=== PATIENT | female | born 1985 | race Caucasian/White ===

== ENCOUNTER 2019-09-04 11:45 | Outpatient (CLI) | payer OTHER, SELFPAY ==
--- NOTE | ~2019-09-04 | XR_ITS ---
XR knee RT 3V 09/04/2019 12:12 Indication: Right knee pain Procedure: 3 views right knee Comparison: No prior studies for comparison. Findings: No fracture or traumatic malalignment. No significant joint effusion. No fracture or trauma tic malalignment. No foreign bodies. Impression: 1: No significant bone or joint abnormality. Reviewed, dictated and finalized at location A. Impression: 1: No significant bone or joint abnormality.
== END 2019-09-04 11:46 | disposition home or self-care (01) ==
PROVIDERS: PCP Internal Medicine; Visit Provider Internal Medicine
DX: M25.561 Pain in right knee (principal); M25.461 Effusion, right knee
CPT/HCPCS: 73562

== ENCOUNTER 2020-03-26 16:37 | Outpatient (CLI) | payer OTHER, SELFPAY ==
[2020-03-26 17:07] LABS: Basophils Absolute Auto 0.02 K/mm3 (0.00-0.10); Basophils Percent Auto 0.2 % (0.0-1.0); Eosinophils Absolute Auto 0.11 K/mm3 (0.02-0.50); Eosinophils Percent Auto 1.2 % (1.0-6.0); Hematocrit 40.2 % (35.0-49.0); Hemoglobin 13.6 g/dL (12.0-15.0); Immature Granulocyte Absolute 0.03 K/mm3 (0.00-0.00); Immature Granulocyte Percent A 0.3 % (0.0-0.0); Lymphocytes Percent Auto 21.9 % (18.0-42.0); Mean Corpuscular HGB Conc 33.8 g/dL (32.0-36.0); Mean Corpuscular Hemoglobin 31.2 pg (27.0-31.0); Mean Corpuscular Volume 92.2 fL (78.0-102.0); Mean Platelet Volume 10.4 fl (9.2-11.8); Monocytes Absolute Auto 0.46 K/mm3 (0.10-0.90); Neutrophils Absolute Auto 6.5 K/mm3 (1.7-7.2); Neutrophils Percent Auto 71.4 % (50.0-70.0); Platelet Count Result 200 K/mm3 (150-420); Red Blood Count 4.36 M/mm3 (4.20-5.40); Red Cell Distribution Width 12.3 % (11.6-14.4); White Blood Count 9.1 K/mm3 (4.8-10.8)
[2020-03-26 17:24] LABS: Alanine Aminotransferase 28 U/L (14-59); Alkaline Phosphatase 80 U/L (46-116); Amylase 36 U/L (25-115); Anion Gap 6 mmol/L (8-16); Aspartate Amino Transferase 15 U/L (15-37); Bilirubin,Total 0.3 mg/dL (0.00-1.00); Blood Urea Nitrogen 13 mg/dL (7-18); Calcium 8.9 mg/dL (8.5-10.1); Carbon Dioxide 30 mmol/L (21-32); Chloride 102 mmol/L (98-108); Estimated Glomerular Filt Rate > 60; Glucose 97 mg/dL (70-99); Lipase 141 U/L (73-393); Osmolality Calculated 286 mOsm/kg (285-295); Potassium 3.7 mmol/L (3.5-5.1); Sodium 138 mmol/L (136-145); Total Protein 7.8 g/dL (6.4-8.2)
[2020-03-26 17:26] LABS: SARS-CoV-2 Ag Negative (Negative)
[2020-03-26 17:30] LABS: Hemoglobin A1C 5.2 % (<5.7)
[2020-03-29 18:26] LABS: SARS-CoV-2 RNA PCR Negative
== END 2020-03-26 16:38 | disposition home or self-care (01) ==
LOC: CHSLAB 16:40
PROVIDERS: PCP Internal Medicine; Visit Provider Nurse Practitioner Family
DX: R51.9 Headache, unspecified (principal); R11.2 Nausea with vomiting, unspecified; R73.9 Hyperglycemia, unspecified
CPT/HCPCS: 36415; 80053; 82150; 83036; 83690; 85025; 87426; C9803; U0003; U0005

== ENCOUNTER 2020-04-21 13:11 | Outpatient (CLI) | payer OTHER, SELFPAY | END 2020-04-21 13:12 | disposition home or self-care (01) | LOC: CHSAUDIO 13:13 | PROVIDERS: PCP Internal Medicine; Visit Provider Otolaryngology | DX: H91.90 Unspecified hearing loss, unspecified ear (principal); H93.13 Tinnitus, bilateral; R42 Dizziness and giddiness | CPT/HCPCS: 92557; 92567 ==

== ENCOUNTER 2020-04-28 08:40 | Emergency (ER) | payer OTHER, SELFPAY ==
[2020-04-28 08:55] VITALS: BP 145/67; PULSE 75; RESP 20; TEMP 36.6; O2SAT 97
--- NOTE | 2020-04-28 08:57 | ED.DIZZY ---
HPI - Dizziness General Chief Complaint: Dizziness Stated Complaint: dizzy nauses Time Seen by Provider: 04/28/20 08:57 Source: patient Mode of arrival: ambulatory Limitations: no limitations History of Present Illness HPI Narrative: 34-year-old woman who comes to the emergency department after having sudden onset room spinning dizziness while she was driving to work this morning. She has had headache since yesterday. Patient states that she was recently evaluated by ear nose and throat doctor for ear ringing , headaches and episodes of dizziness and was found to also have some hearing loss. Patient states that she felt severely nauseous and the symptoms were worse with moving her eyes and moving her head. her headache at present is a 5/10. She states she has had some postnasal drainage for the last day or 2 but has had no Fever, ear pain, sore throat, cough. She states she has some fullness in her right ear. MD elicited complaint: vertigo Pertinent past history: inner ear problems Onset (ago): day(s) (1) Timing: sudden onset Severity: severe Description: room spinning History of similar symptoms: Yes Exacerbating factors: movement/ambulation ( moving her eyes or moving her head) Relieving factors: remaining still Associated symptoms: nausea, vomiting, tinnitus and ear fullness Related Data Allergies Allergy/AdvReac Type Severity Reaction Status Date / Time Sulfa (Sulfonamide Allergy Unknown Rash Verified 04/28/20 09:10 Antibiotics) Review of Systems Constitutional: Constitutional: Denies chills and Denies fever(s) Eyes: Eyes: Denies change in vision and Denies photophobia ENT: Denies dysphagia, Denies nasal congestion and Denies sore throat Cardiovascular: Cardiovascular: Denies chest pain and Denies radiating jaw, neck or arm pain Respiratory: Respiratory: Denies cough and Denies dyspnea Gastrointestinal: Gastrointestinal: Reports as per HPI, Denies abdominal pain, Reports nausea and Reports vomiting Musculoskeletal: Musculoskeletal: Denies arthralgias and Denies joint swelling Integumentary/Breasts: Skin/Breast: Denies pruritus, Denies erythema and Denies rash Neurologic: Reports as per HPI, Denies confusion, Reports vertigo, Reports headache(s), Denies focal weakness and Denies numbness Endocrine: Endocrine: Denies polydipsia and Denies polyuria Hematologic/Lymphatic: Hematologic/Lymphatic: Denies easy bleeding and Denies easy bruising Allergic/Immunologic: Allergic/Immunologic: Denies lip swelling and Denies throat swelling PMFSH Surgical History Surgical History H/O: hysterectomy Family History Family History (Updated 04/21/20 @ 09:20 by Litzy Jaquez MA) Father Depression Grandparent Cancer Diabetes mellitus Heart problem Cerebrovascular accident Social History Social History Smoking status: Never smoker Alcohol intake: never Substance use: never Exam Const: General: healthy appearing and alert Nutritional Appearance: well nourished Orientation/consciousness: patient oriented x3 Limitations: no limitations Other: [id number] acute distress. HENMT: Head: normal to inspection Ears: TM's normal bilaterally and EAC's normal General nose exam: Normal nares present Face and sinus: normal facial exam Mouth: Yes moist mucous membranes Throat: posterior oropharynx normal Eyes: Conjunctivae: conjunctivae normal Pupils: Equal, round and reactive pupils present EOM: EOMs intact bilaterally Neck: Neck: normal visual inspection and no lymphadenopathy Resp: Effort & Inspection: normal respiratory effort and not labored Auscultation: clear to auscultation bilaterally, no rales, no rhonchi and no wheezes Cardio: Rate: regular rate Rhythm: regular rhythm Heart sounds: no murmurs Skin: General skin exam: normal color, no jaundice and no pallor Rashes: no rashe
[2020-04-28] MEDS: ONDANSETRON HCL ODT 4 MG TABLET PO (09:16)
[2020-04-28] MEDS: KETOROLAC (*BKC) 60 MG/2 ML VIAL IM (09:16)
[2020-04-28 09:45] VITALS: BP 111/68; PULSE 57; RESP 17; TEMP 36.6; O2SAT 100
== END 2020-04-28 09:48 | disposition home or self-care (01) ==
PROVIDERS: Emergency Provider Emergency Medicine; PCP Internal Medicine
DX: R42 Dizziness and giddiness (principal); R51.9 Headache, unspecified; Z90.710 Acquired absence of both cervix and uterus
CPT/HCPCS: 96372; 99283; A9270; J1885

== ENCOUNTER 2020-05-12 09:01 | Outpatient (CLI) | payer OTHER, SELFPAY ==
--- NOTE | ~2020-05-12 | MR_ITS ---
EXAMINATION: MR IAC wo/w con DATE: 05/12/2020 10:46 INDICATION: Right-sided sensorineural hearing loss. TECHNIQUE: Magnetic resonance imaging (MRI) of the brain, brainstem, and internal auditory canals was performed without and with 10 mL MultiHance intravenous contrast. Sequences included sagittal and ax ial T1-weighted FSE, axial diffusion-weighted FS EPI, axial T2*-weighted GRE, axial T2-weighted FLAIR Propeller, axial T1-weighted LINDSEY, axial T2-weighted Propeller, small bdqkm-qk-ebxz coronal FIESTA, small tyykq-sk-vysl coronal T1-weighted FSE, and small zvstd-zv-slad axial T1-weighted SPGR. Postcon trast sequences included axial T1-weighted FSE, axial T1-weighted LINDSEY, small adpjj-oo-aona coronal T1-weighted FSE, and small tmerg-wk-msri axial T1-weighted SPGR. Apparent diffusion coefficient (ADC) maps were created. COMPARISON: None. FINDINGS: There is no intracranial hemorrhage, acute infarction, or abnormal intracranial mass lesion . The ventricles are normal in size. The internal auditory canals and inner and middle ears are renetta l. There is mild mucosal thickening in the paranasal sinuses. The orbits are normal. IMPRESSION: 1. Normal brain. Reviewed, dictated and finalized at location A. GER TALENT ACQUISITION IMPRESSION: 1. Normal brain.
== END 2020-05-12 09:02 | disposition home or self-care (01) ==
LOC: CHSIMG 09:02
PROVIDERS: PCP Internal Medicine; Visit Provider Otolaryngology
DX: H90.5 Unspecified sensorineural hearing loss (principal)
CPT/HCPCS: 70553; A9577

== ENCOUNTER 2020-06-14 08:11 | Outpatient (CLI) | payer OTHER, SELFPAY | END 2020-06-14 08:12 | disposition home or self-care (01) | LOC: ANHAUDIO 08:12 | PROVIDERS: PCP Internal Medicine; Visit Provider Otolaryngology | DX: R26.89 Other abnormalities of gait and mobility (principal); R42 Dizziness and giddiness | CPT/HCPCS: 92537; 92540; 92546; 92567 ==

== ENCOUNTER 2020-07-29 15:00 | Outpatient (RCR) | payer OTHER, SELFPAY ==
[2020-06-01 10:55] VITALS: BMI 44.4
[2020-06-01 10:59] VITALS: BMI 44.4
== END 2020-08-16 14:43 | disposition home or self-care (01) ==
LOC: ANHDMC 15:00
PROVIDERS: PCP Internal Medicine; Visit Provider Internal Medicine
DX: E66.9 Obesity, unspecified (principal); Z71.3 Dietary counseling and surveillance
CPT/HCPCS: 97802

== ENCOUNTER 2021-03-14 12:02 | Outpatient (CLI) | payer OTHER, SELFPAY ==
[2021-03-14 13:42] LABS: SARS-CoV-2 Ag Negative (Negative)
== END 2021-03-14 12:03 | disposition home or self-care (01) ==
LOC: CHSLAB 12:04
PROVIDERS: PCP Internal Medicine; Visit Provider Internal Medicine
DX: J06.9 Acute upper respiratory infection, unspecified (principal); Z20.822 Contact with and (suspected) exposure to COVID-19
CPT/HCPCS: 87426; C9803

== ENCOUNTER 2023-12-03 15:57 | Outpatient (CLI) | payer OTHER, SELFPAY | END 2023-12-03 15:58 | disposition home or self-care (01) | LOC: CHSIMG 16:02 | PROVIDERS: PCP Internal Medicine; Visit Provider Nurse Practitioner Family | DX: M25.561 Pain in right knee (principal) | CPT/HCPCS: 73562 ==